=== PATIENT | male | born 1940 | race Caucasian/White ===

== ENCOUNTER 2018-05-13 17:43 | Emergency (ER) | payer MEDICARE, OTHER | END 2018-05-13 18:06 | disposition left against medical advice (07) | LOC: ED 17:43 | DX: Z53.21 Procedure and treatment not carried out due to patient leaving prior to being seen by health care provider (principal) ==

== ENCOUNTER 2021-03-28 08:06 | Outpatient (CLI) | payer MEDICARE, OTHER ==
[2021-03-28] MEDS ORDERED: GADOBUTROL 10 MMOL/10 ML VIAL ONE (08:24)
--- NOTE | 2021-03-28 10:29 | MRI Report ---
PROCEDURE: Lumbar Spine W/WO INDICATIONS: BONE MATASTASES CONTRAST: IV CONTRAST: Gadavist ml: 9 TECHNIQUE: Noncontrast sagittal T1 spin echo and T2 fast spin echo, sagittal STIR, axial T1 and T2 fast spin ech o through the lumbar spine. In cases with scoliosis, additional coronal T2 fast spin echo may be per formed. After the administration of contrast, sagittal and axial T1 spin echo with fat saturation th rough the lumbar spine. COMPARISON: None. FINDINGS: Image quality: Excellent. Alignment and curvature: There is normal bony alignment. It is assumed that there are 5 nonrib-beari ng lumbar vertebral bodies, and that axial imaging was obtained from T11-T12 through L5-S1 Marrow: Extensive diffuse involvement of the lower thoracic spine and lumbar spine and sacrum and med ial iliac bones by metastatic disease. There are probable pathologic fractures of the medial iliac epi anum bilaterally, and possibly the left sacrum. There is a mild pathologic compression of L2, and a mi nimal pathologic compression of T12 and a probable minimal pathologic compression of T11. No acute ve rtebral body compression fractures. No extraosseous soft tissue masses are identified. Incidental no te is made of the presence of a prominent hemangioma involving T12. Spinal cord: Conus medullaris terminates at the T12-L1 level. Visualized spinal cord demonstrates n ormal signal, without suspicious enhancement. Paraspinous soft tissues: No paravertebral masses or abnormal enhancement outside of the bony struct ures. T11-T12: No canal stenosis or foraminal stenosis. T12-L1: Mild disc bulge. No canal stenosis or foraminal stenosis. L1-L2: Disc bulge. Facet hypertrophy. Mild canal stenosis and mild bilateral foraminal stenosis. L2-L3: Disc bulge. Facet hypertrophy. Mild canal stenosis. Mild to moderate bilateral foraminal st enosis. L3-L4: Disc bulge. Facet hypertrophy. Moderate canal stenosis. A right foraminal disc bulge contrib utes to moderate to severe right foraminal narrowing and flattening deformity on the exiting right L3 nerve root. Mild to moderate left foraminal narrowing. L4-L5: Disc bulge. Facet hypertrophy. No canal stenosis. Mild to moderate bilateral foraminal steno sis. L5-S1: No canal stenosis or foraminal stenosis. IMPRESSION: 1. There is extensive bony metastatic disease involving all visualized bony structures. 2. Today's numbering system assumes that there are 5 nonrib-bearing lumbar vertebral bodies, and that axial imaging was obtained from T11-12 through L5-S1. 3. There are likely bilateral pathologic fractures of the medial iliac bones, and the left sacrum. Ad ditionally, there are mild or minimal pathologic compressions of T11, T12, and L2. 4. Multilevel canal stenosis as described above secondary to degenerative change. There is mild canal stenosis at L1-L2 and L2-L3. There is moderate canal stenosis at L3-L4. 5. There is moderate to severe right foraminal narrowing at L3-L4. Reviewed by: Feng Lloyd MD on 03/28/2021 10:27 AM PDT Approved by: Feng Lloyd MD on 03/28/2021 10:27 AM PDT Station ID: [id number]
[2021-03-29] MEDS ORDERED: GADOBUTROL 10 MMOL/10 ML VIAL IVP ONE (10:24)
== END 2021-03-28 08:07 | disposition home or self-care (01) ==
LOC: DI 08:06
PROVIDERS: ATTEND Internal Medicine
DX: C79.51 Secondary malignant neoplasm of bone (principal); M51.26 Other intervertebral disc displacement, lumbar region; M48.061 Spinal stenosis, lumbar region without neurogenic claudication
CPT/HCPCS: 72158; A9585